=== PATIENT | male | born 1970 | race Two or more races ===

== ENCOUNTER 2021-11-16 07:38 | Day surgery (SDC) | payer OTHER | END 2021-11-16 13:00 | disposition home or self-care (01) | LOC: AMB-ENDOS 07:38 | PROVIDERS: ATTEND Colon & Rectal Surgery | DX: K63.5 Polyp of colon (principal); Z20.822 Contact with and (suspected) exposure to COVID-19; I10 Essential (primary) hypertension; E03.9 Hypothyroidism, unspecified; F17.210 Nicotine dependence, cigarettes, uncomplicated; J45.909 Unspecified asthma, uncomplicated ==

== ENCOUNTER 2024-01-23 06:35 | Day surgery (SDC) | payer OTHER ==
[2024-01-23] MEDS ORDERED: fentaNYL CITRATE 50 MCG/ML AMPUL IV PUSH ONE (09:30)
[2024-01-23] MEDS ORDERED: MIDAZOLAM HCL 2 MG/2 ML VIAL IV ONE (09:30)
[2024-01-23] MEDS ORDERED: ONDANSETRON HCL 2 MG/ML VIAL IV ONE (09:30)
[2024-01-23] MEDS ORDERED: DIPHENHYDRAMINE HCL 50 MG/ML VIAL 1ML IV ONE (09:30)
== END 2024-01-23 11:00 | disposition home or self-care (01) ==
LOC: AMB-ENDOS 06:35
PROVIDERS: ATTEND Colon & Rectal Surgery
DX: D12.2 Benign neoplasm of ascending colon (principal); D12.3 Benign neoplasm of transverse colon; K63.5 Polyp of colon; K57.30 Diverticulosis of large intestine without perforation or abscess without bleeding